=== PATIENT | female | born 1940 | race Caucasian/White ===

== ENCOUNTER 2017-07-27 21:05 | Inpatient (IN) | payer MEDICARE, OTHER ==
[2017-07-27 21:41] LABS: ADD MAN DIFF? NO
[2017-07-27] MEDS: ONDANSETRON 4 MG INJ IV (21:47)
[2017-07-27] MEDS: SOD CHLORIDE 0.9% 1,000 ML IV (21:47)
[2017-07-27 21:48] LABS: BASOPHILS % 0.2 % (0.0-2.0); EOSINOPHILS # 0.1 10^3/ul (0.0-0.5); EOSINOPHILS % 0.9 % (0.0-7.0); HEMATOCRIT 38.7 % (37.0-47.0); HEMOGLOBIN 12.8 g/dl (12.0-16.0); LYMPHOCYTES # 1.8 10^3/ul (0.8-2.9); LYMPHOCYTES % 20.7 % (15.0-51.0); MEAN CORPUSCULAR HEMOGLOBIN 31.8 pg (29.0-33.0); MEAN CORPUSCULAR HGB CONC 33.1 g/dl (32.0-37.0); MEAN PLATELET VOLUME 11.6 fl (7.4-10.4); MONOCYTE # 0.7 10^3/ul (0.3-0.9); MONOCYTES % 8.5 % (0.0-11.0); NEUTROPHILS % 69.5 % (39.0-77.0); PLATELET COUNT 180 10^3/UL (140-415); RED BLOOD COUNT 4.03 10^6/ul (4.20-5.40); RED CELL DISTRIBUTION WIDTH 13.9 % (11.5-14.5)
[2017-07-27 21:48] LABS: WHITE BLOOD COUNT 8.6 10^3/ul (4.8-10.8)
[2017-07-27 22:10] LABS: INR 1.06; PROTIME 13.9 Sec (11.9-14.9); PT RATIO 1.1
[2017-07-27 22:11] LABS: PARTIAL THROMBOPLASTIN TIME 29.3 Sec (25.0-35.0)
[2017-07-27 22:12] LABS: LACTIC ACID 1.6 mmol/L (0.5-2.0)
[2017-07-27 22:19] LABS: ADD UMIC NO; UR ASCORBIC ACID NEGATIVE (NEGATIVE); UR BILIRUBIN (Dip) NEGATIVE (NEGATIVE); UR BLOOD (Dip) NEGATIVE (NEGATIVE); UR CLARITY CLEAR (CLEAR); UR COLOR YELLOW (YELLOW); UR GLUCOSE (Dip) NEGATIVE (NEGATIVE); UR KETONES (Dip) NEGATIVE (NEGATIVE); UR LEUKOCYTE ESTERASE (Dip) NEGATIVE Leu/ul (NEGATIVE); UR NITRITE (Dip) NEGATIVE (NEGATIVE); UR SPECIFIC GRAVITY (Dip) 1.017 (1.003-1.030); UR TOTAL PROTEIN (Dip) NEGATIVE (NEGATIVE); UR UROBILINOGEN (Dip) NEGATIVE (NEGATIVE)
[2017-07-27 22:26] LABS: ALANINE AMINOTRANSFERASE 11 IU/L (13-69); ALBUMIN 4.8 g/dl (3.3-4.9); ALBUMIN/GLOBULIN RATIO 1.23; ALKALINE PHOSPHATASE 71 IU/L (42-121); ANION GAP 19 (8-16); ASPARTATE AMINO TRANSFERASE 34 IU/L (15-46); BILIRUBIN,INDIRECT 0.6 mg/dl (0-1.1); BILIRUBIN,TOTAL 0.6 mg/dl (0.2-1.3); BLOOD UREA NITROGEN 15 mg/dl (7-20); CALCIUM 9.5 mg/dl (8.4-10.2); CARBON DIOXIDE 25 mmol/L (21-31); CHLORIDE 102 mmol/L (97-110); CREATININE 0.46 mg/dl (0.44-1.00); GLUCOSE 103 mg/dl (70-220); POTASSIUM 5.2 mmol/L (3.5-5.1); SODIUM 141 mmol/L (135-144); TOTAL PROTEIN 8.7 g/dl (6.1-8.1)
[2017-07-27 22:30] LABS: ACETAMINOPHEN < 10.0 ug/ml (10.0-30.0); SALICYLATE < 1.0 mg/dl (5.0-30.0)
[2017-07-27 22:37] LABS: B-TYPE NATRIURETIC PEPTIDE 398 PG/ML (0-450); TROPONIN-I 0.013 ng/ml (0.00-0.12)
[2017-07-27 22:47] LABS: AMPHETAMINE/METHAMPHETAMINE NEGATIVE (NEGATIVE); BARBITURATES NEGATIVE (NEGATIVE); BENZODIAZEPINES NEGATIVE (NEGATIVE)
[2017-07-27 22:48] LABS: CANNABINOIDS NEGATIVE (NEGATIVE); COCAINE NEGATIVE (NEGATIVE); ETHANOL < 10.0 mg/dl; OPIATES POSITIVE (NEGATIVE)
[2017-07-27] MEDS: hydrALAzine 20 MG INJ IV (22:57)
[2017-07-27 23:33] LABS: FREE THYROXINE INDEX (Calc) 2.88 ug/ml (0.65-3.89)
[2017-07-27 23:39] LABS: T3 UPTAKE 33.9 % (23.5-40.5); T4 (THYROXINE) 8.5 ug/dl (5.5-11.0)
[2017-07-28] MEDS: morphine 2 MG INJ IV (00:13)
[2017-07-28] MEDS: SOD CHLORIDE 0.9% 1,000 ML IV ×3 (00:19→18:50)
[2017-07-28] MEDS: ONDANSETRON 4 MG INJ IV ×2 (00:22→21:57)
[2017-07-28] MEDS: METOCLOPRAMIDE 10 MG INJ IV (00:22)
[2017-07-28] MEDS: SALMETEROL/FLUTICASONE 250/50 INHA INH ×3 (00:30→21:57)
[2017-07-28] MEDS ORDERED: ACETAMINOPHEN 650MG/20.3ML CUP PO (00:30)
[2017-07-28] MEDS ORDERED: niCARdipine 25 MG in SOD CHLORIDE 0.9% 240 ML IV (00:45)
[2017-07-28] MEDS: PANTOPRAZOLE 40 MG INJ IV (05:57)
[2017-07-28 06:06] LABS: ADD MAN DIFF? NO
[2017-07-28 06:27] LABS: BASOPHILS % 0.1 % (0.0-2.0); EOSINOPHILS % 0.2 % (0.0-7.0); HEMATOCRIT 35.5 % (37.0-47.0); HEMOGLOBIN 11.8 g/dl (12.0-16.0); LYMPHOCYTES # 1.7 10^3/ul (0.8-2.9); LYMPHOCYTES % 18.2 % (15.0-51.0); MEAN CORPUSCULAR HGB CONC 33.2 g/dl (32.0-37.0); MEAN CORPUSCULAR VOLUME 96.2 fl (82.0-101.0); MEAN PLATELET VOLUME 11.6 fl (7.4-10.4); MONOCYTE # 0.7 10^3/ul (0.3-0.9); MONOCYTES % 7.3 % (0.0-11.0); NEUTROPHIL # 6.9 10^3/ul (1.6-7.5); NEUTROPHILS % 73.9 % (39.0-77.0); PLATELET COUNT 176 10^3/UL (140-415); RED BLOOD COUNT 3.69 10^6/ul (4.20-5.40)
[2017-07-28 06:27] LABS: WHITE BLOOD COUNT 9.4 10^3/ul (4.8-10.8)
[2017-07-28 07:07] LABS: ANION GAP 14 (8-16); BLOOD UREA NITROGEN 12 mg/dl (7-20); CALCIUM 8.9 mg/dl (8.4-10.2); CARBON DIOXIDE 29 mmol/L (21-31); CHLORIDE 101 mmol/L (97-110); CREATININE 0.43 mg/dl (0.44-1.00); GLUCOSE 110 mg/dl (70-220); MAGNESIUM 1.7 mg/dl (1.7-2.5); PHOSPHORUS 3.4 mg/dl (2.5-4.9); POTASSIUM 3.6 mmol/L (3.5-5.1); SODIUM 140 mmol/L (135-144)
[2017-07-28] MEDS: DOCUSATE SODIUM 100 MG CAP PO ×2 (09:48→20:49)
[2017-07-28] MEDS: LORAZEPAM 2 MG INJ IV (21:10)
[2017-07-28] MEDS ORDERED: DIPHENHYDRAMINE 50 MG INJ (22:34)
[2017-07-29] MEDS: LORAZEPAM 2 MG INJ IV (00:57)
[2017-07-29] MEDS: PANTOPRAZOLE 40 MG INJ IV (05:47)
[2017-07-29] MEDS: DOCUSATE SODIUM 100 MG CAP PO ×2 (09:00→22:05)
[2017-07-29] MEDS: SALMETEROL/FLUTICASONE 250/50 INHA INH ×2 (09:00→22:05)
[2017-07-29] MEDS ORDERED: LORAZEPAM 2 MG INJ IV (09:30)
[2017-07-29] MEDS ORDERED: INFLUENZA VIRUS VACCINE 0.5 ML SYG IM* (12:30)
[2017-07-29] MEDS: AMLODIPINE 5 MG TAB PO (16:55)
[2017-07-30] MEDS: METOPROLOL 25 MG TAB PO (01:50)
[2017-07-30] MEDS: PANTOPRAZOLE 40 MG INJ IV (06:18)
[2017-07-30] MEDS: SOD CHLORIDE 0.9% 100 ML (09:36)
[2017-07-30] MEDS: IOHEXOL 300MG/ML 150 ML BTL (09:36)
[2017-07-30] MEDS: SALMETEROL/FLUTICASONE 250/50 INHA INH (09:53)
[2017-07-30] MEDS: DOCUSATE SODIUM 100 MG CAP PO ×2 (09:53→20:33)
[2017-07-30] MEDS: AMLODIPINE 5 MG TAB PO (09:54)
[2017-07-31] MEDS: SALMETEROL/FLUTICASONE 250/50 INHA INH ×3 (03:08→19:53)
[2017-07-31] MEDS: PANTOPRAZOLE 40 MG INJ IV (05:29)
[2017-07-31] MEDS: DOCUSATE SODIUM 100 MG CAP PO ×2 (09:04→19:53)
[2017-07-31] MEDS: AMLODIPINE 5 MG TAB PO (09:05)
[2017-07-31] MEDS: ACETAMINOPHEN 325 MG TAB PO ×2 (11:46→19:53)
[2017-07-31] MEDS: ATORVASTATIN 20 MG TAB PO (19:53)
[2017-08-01] MEDS: PANTOPRAZOLE 40 MG INJ IV (05:33)
[2017-08-01] MEDS: SALMETEROL/FLUTICASONE 250/50 INHA INH ×2 (09:54→21:51)
[2017-08-01] MEDS: DOCUSATE SODIUM 100 MG CAP PO ×2 (09:54→21:51)
[2017-08-01] MEDS: AMLODIPINE 5 MG TAB PO (09:54)
[2017-08-01] MEDS: LORAZEPAM 2 MG INJ IV (20:15)
[2017-08-01] MEDS: ATORVASTATIN 20 MG TAB PO (21:51)
[2017-08-02] MEDS: PANTOPRAZOLE 40 MG INJ IV (05:17)
[2017-08-02] MEDS: DOCUSATE SODIUM 100 MG CAP PO ×2 (09:13→21:12)
[2017-08-02] MEDS: SALMETEROL/FLUTICASONE 250/50 INHA INH ×2 (09:13→21:12)
[2017-08-02] MEDS: AMLODIPINE 5 MG TAB PO (09:13)
[2017-08-02] MEDS: ATORVASTATIN 20 MG TAB PO (21:12)
[2017-08-02] MEDS ORDERED: MAGNESIUM HYDROXIDE 30ML CUP PO (21:30)
[2017-08-02] MEDS: MAGNESIUM HYDROXIDE 30ML CUP PO (21:45)
[2017-08-03] MEDS: ACETAMINOPHEN 325 MG TAB PO (04:28)
[2017-08-03] MEDS: LORAZEPAM 2 MG INJ IV (04:28)
[2017-08-03] MEDS: PANTOPRAZOLE 40 MG INJ IV (05:12)
[2017-08-03 06:29] LABS: ADD MAN DIFF? NO
[2017-08-03 06:43] LABS: BASOPHILS % 0.3 % (0.0-2.0); EOSINOPHILS # 0.1 10^3/ul (0.0-0.5); HEMOGLOBIN 13.1 g/dl (12.0-16.0); LYMPHOCYTES # 1.9 10^3/ul (0.8-2.9); LYMPHOCYTES % 15.8 % (15.0-51.0); MEAN CORPUSCULAR HEMOGLOBIN 32.7 pg (29.0-33.0); MEAN CORPUSCULAR HGB CONC 34.5 g/dl (32.0-37.0); MEAN CORPUSCULAR VOLUME 94.8 fl (82.0-101.0); MEAN PLATELET VOLUME 11.2 fl (7.4-10.4); MONOCYTE # 1.4 10^3/ul (0.3-0.9); MONOCYTES % 11.6 % (0.0-11.0); NEUTROPHIL # 8.3 10^3/ul (1.6-7.5); PLATELET COUNT 237 10^3/UL (140-415); RED BLOOD COUNT 4.01 10^6/ul (4.20-5.40); RED CELL DISTRIBUTION WIDTH 13.6 % (11.5-14.5)
[2017-08-03 06:43] LABS: WHITE BLOOD COUNT 11.7 10^3/ul (4.8-10.8)
[2017-08-03 06:48] LABS: INR 1.11; PROTIME 14.5 Sec (11.9-14.9); PT RATIO 1.1
[2017-08-03 06:53] LABS: ANION GAP 16 (8-16); BLOOD UREA NITROGEN 11 mg/dl (7-20); CALCIUM 8.9 mg/dl (8.4-10.2); CARBON DIOXIDE 29 mmol/L (21-31); CHLORIDE 99 mmol/L (97-110); CREATININE 0.45 mg/dl (0.44-1.00); GLUCOSE 115 mg/dl (70-220); MAGNESIUM 2.1 mg/dl (1.7-2.5); POTASSIUM 4.1 mmol/L (3.5-5.1); SODIUM 140 mmol/L (135-144)
[2017-08-03] MEDS: DOCUSATE SODIUM 100 MG CAP PO ×3 (09:00→20:42)
[2017-08-03] MEDS: SALMETEROL/FLUTICASONE 250/50 INHA INH ×2 (09:13→20:42)
[2017-08-03] MEDS: METOPROLOL 25 MG TAB PO ×2 (09:15→20:43)
[2017-08-03] MEDS: CEFTRIAXONE 1 GM/50 ML (PMX) 50 ML IVPB (16:54)
[2017-08-03] MEDS: ATORVASTATIN 20 MG TAB PO (20:42)
[2017-08-04 00:30] LABS: ADD UMIC NO; UR ASCORBIC ACID NEGATIVE (NEGATIVE); UR BILIRUBIN (Dip) NEGATIVE (NEGATIVE); UR BLOOD (Dip) NEGATIVE (NEGATIVE); UR CLARITY CLEAR (CLEAR); UR COLOR YELLOW (YELLOW); UR GLUCOSE (Dip) NEGATIVE (NEGATIVE); UR KETONES (Dip) NEGATIVE (NEGATIVE); UR LEUKOCYTE ESTERASE (Dip) NEGATIVE Leu/ul (NEGATIVE); UR NITRITE (Dip) NEGATIVE (NEGATIVE); UR SPECIFIC GRAVITY (Dip) 1.013 (1.003-1.030); UR TOTAL PROTEIN (Dip) NEGATIVE (NEGATIVE); UR UROBILINOGEN (Dip) NEGATIVE (NEGATIVE)
[2017-08-04] MEDS: PANTOPRAZOLE 40 MG INJ IV (05:12)
[2017-08-04] MEDS: METOPROLOL 25 MG TAB PO ×2 (08:42→20:41)
[2017-08-04] MEDS: DOCUSATE SODIUM 100 MG CAP PO ×2 (08:42→20:41)
[2017-08-04] MEDS: SALMETEROL/FLUTICASONE 250/50 INHA INH ×2 (08:42→20:41)
[2017-08-04 08:54] LABS: ADD MAN DIFF? NO
[2017-08-04 08:59] LABS: BASOPHILS % 0.3 % (0.0-2.0); EOSINOPHILS # 0.1 10^3/ul (0.0-0.5); EOSINOPHILS % 1.2 % (0.0-7.0); HEMATOCRIT 36.7 % (37.0-47.0); HEMOGLOBIN 12.5 g/dl (12.0-16.0); LYMPHOCYTES # 1.6 10^3/ul (0.8-2.9); LYMPHOCYTES % 16.6 % (15.0-51.0); MEAN CORPUSCULAR HEMOGLOBIN 32.5 pg (29.0-33.0); MEAN CORPUSCULAR HGB CONC 34.1 g/dl (32.0-37.0); MEAN CORPUSCULAR VOLUME 95.3 fl (82.0-101.0); MEAN PLATELET VOLUME 11.4 fl (7.4-10.4); MONOCYTE # 1.2 10^3/ul (0.3-0.9); MONOCYTES % 12.6 % (0.0-11.0); NEUTROPHIL # 6.6 10^3/ul (1.6-7.5); PLATELET COUNT 269 10^3/UL (140-415); RED BLOOD COUNT 3.85 10^6/ul (4.20-5.40); RED CELL DISTRIBUTION WIDTH 13.5 % (11.5-14.5)
[2017-08-04 08:59] LABS: WHITE BLOOD COUNT 9.6 10^3/ul (4.8-10.8)
[2017-08-04 09:38] LABS: ANION GAP 15 (8-16); BLOOD UREA NITROGEN 10 mg/dl (7-20); CALCIUM 8.7 mg/dl (8.4-10.2); CARBON DIOXIDE 27 mmol/L (21-31); CHLORIDE 99 mmol/L (97-110); CREATININE 0.46 mg/dl (0.44-1.00); GLUCOSE 110 mg/dl (70-220); POTASSIUM 4.2 mmol/L (3.5-5.1); SODIUM 137 mmol/L (135-144)
[2017-08-04] MEDS: CEFTRIAXONE 1 GM/50 ML (PMX) 50 ML IVPB (15:21)
[2017-08-04] MEDS: ATORVASTATIN 20 MG TAB PO (20:41)
== END 2017-08-04 22:30 | DRG 64 ==
LOC: ICU 23:58 → E/R 21:05 → PP2 07-28 18:30
DX: I61.1 Nontraumatic intracerebral hemorrhage in hemisphere, cortical (principal); G93.49 Other encephalopathy; J69.0 Pneumonitis due to inhalation of food and vomit; R47.01 Aphasia; I25.10 Atherosclerotic heart disease of native coronary artery without angina pectoris; Z82.49 Family history of ischemic heart disease and other diseases of the circulatory system; F41.9 Anxiety disorder, unspecified; I60.9 Nontraumatic subarachnoid hemorrhage, unspecified; M43.26 Fusion of spine, lumbar region; I10 Essential (primary) hypertension; E87.5 Hyperkalemia; E78.5 Hyperlipidemia, unspecified; J45.909 Unspecified asthma, uncomplicated; J44.9 Chronic obstructive pulmonary disease, unspecified; M40.209 Unspecified kyphosis, site unspecified; R00.0 Tachycardia, unspecified; Z95.1 Presence of aortocoronary bypass graft
CPT/HCPCS: 36415; 70450; 70544; 70548; 70553; 71045; 71260; 74177; 80048; 80053; 80306; 80307; 81003; 83605; 83735; 83880; 84100; 84436; 84443; 84479; 84484; 85025; 85610; 85730; 87040; 87081; 92610; 93005; 93306; 93970; 96374; 96375; 96376; 97110; 97116; 97163; 97530; 99291-25

== ENCOUNTER 2017-08-04 22:52 | Inpatient (IN) | payer MEDICARE, OTHER ==
[2017-08-05] MEDS ORDERED: ONDANSETRON 4 MG INJ IV (00:30)
[2017-08-05] MEDS ORDERED: ACETAMINOPHEN 650MG/20.3ML CUP PO (00:30)
[2017-08-05] MEDS ORDERED: MAGNESIUM HYDROXIDE 30ML CUP PO (00:30)
[2017-08-05] MEDS: PANTOPRAZOLE 40 MG INJ IV (06:39)
[2017-08-05 07:25] LABS: ADD UMIC NO; UR ASCORBIC ACID NEGATIVE (NEGATIVE); UR BACTERIA FEW /HPF (NONE SEEN); UR BILIRUBIN (Dip) NEGATIVE (NEGATIVE); UR BLOOD (Dip) NEGATIVE (NEGATIVE); UR BUDDING YEAST FEW /HPF (NONE SEEN); UR CLARITY SLIGHTLY CLOUDY (CLEAR); UR COLOR YELLOW (YELLOW); UR GLUCOSE (Dip) NEGATIVE (NEGATIVE); UR KETONES (Dip) NEGATIVE (NEGATIVE); UR LEUKOCYTE ESTERASE (Dip) NEGATIVE Leu/ul (NEGATIVE); UR NITRITE (Dip) NEGATIVE (NEGATIVE); UR RBC 4 /HPF (0-5); UR SPECIFIC GRAVITY (Dip) 1.012 (1.003-1.030); UR SQUAMOUS EPITHELIAL CELL FEW /HPF (FEW); UR TOTAL PROTEIN (Dip) NEGATIVE (NEGATIVE); UR UROBILINOGEN (Dip) NEGATIVE (NEGATIVE); UR WBC 3 /HPF (0-5)
[2017-08-05 07:26] LABS: ADD MAN DIFF? NO
[2017-08-05 07:28] LABS: WHITE BLOOD COUNT 9.1 10^3/ul (4.8-10.8)
[2017-08-05 07:28] LABS: BASOPHILS % 0.3 % (0.0-2.0); EOSINOPHILS # 0.1 10^3/ul (0.0-0.5); EOSINOPHILS % 1.2 % (0.0-7.0); HEMATOCRIT 36.9 % (37.0-47.0); HEMOGLOBIN 12.5 g/dl (12.0-16.0); LYMPHOCYTES # 1.9 10^3/ul (0.8-2.9); LYMPHOCYTES % 20.7 % (15.0-51.0); MEAN CORPUSCULAR HEMOGLOBIN 32.2 pg (29.0-33.0); MEAN CORPUSCULAR HGB CONC 33.9 g/dl (32.0-37.0); MEAN CORPUSCULAR VOLUME 95.1 fl (82.0-101.0); MONOCYTE # 1.2 10^3/ul (0.3-0.9); MONOCYTES % 12.7 % (0.0-11.0); NEUTROPHIL # 5.9 10^3/ul (1.6-7.5); NEUTROPHILS % 64.7 % (39.0-77.0); PLATELET COUNT 278 10^3/UL (140-415); RED BLOOD COUNT 3.88 10^6/ul (4.20-5.40); RED CELL DISTRIBUTION WIDTH 13.5 % (11.5-14.5)
[2017-08-05 07:48] LABS: ALANINE AMINOTRANSFERASE 29 IU/L (13-69); ALBUMIN 3.7 g/dl (3.3-4.9); ALBUMIN/GLOBULIN RATIO 0.92; ALKALINE PHOSPHATASE 82 IU/L (42-121); ANION GAP 15 (8-16); ASPARTATE AMINO TRANSFERASE 28 IU/L (15-46); BILIRUBIN,INDIRECT 0.3 mg/dl (0-1.1); BILIRUBIN,TOTAL 0.3 mg/dl (0.2-1.3); BLOOD UREA NITROGEN 12 mg/dl (7-20); CALCIUM 9.1 mg/dl (8.4-10.2); CARBON DIOXIDE 26 mmol/L (21-31); CHLORIDE 102 mmol/L (97-110); CREATININE 0.44 mg/dl (0.44-1.00); GLUCOSE 106 mg/dl (70-220); POTASSIUM 4.1 mmol/L (3.5-5.1); SODIUM 139 mmol/L (135-144); TOTAL PROTEIN 7.7 g/dl (6.1-8.1)
[2017-08-05] MEDS ORDERED: BISACODYL 10 MG SUPP PR (08:00)
[2017-08-05] MEDS ORDERED: LACTULOSE 30ML CUP PO (08:00)
[2017-08-05] MEDS: SALMETEROL/FLUTICASONE 250/50 INHA INH ×2 (08:38→21:22)
[2017-08-05] MEDS: CEFTRIAXONE 1 GM/50 ML (PMX) 50 ML IVPB (08:38)
[2017-08-05] MEDS: DOCUSATE SODIUM 100 MG CAP PO ×2 (08:39→21:00)
[2017-08-05] MEDS: METOPROLOL 25 MG TAB PO ×2 (08:39→21:22)
[2017-08-05] MEDS: ACETAMINOPHEN 325 MG TAB PO (08:59)
[2017-08-05] MEDS: SENNA TAB PO (21:00)
[2017-08-05] MEDS: ATORVASTATIN 20 MG TAB PO (21:22)
[2017-08-06] MEDS: PANTOPRAZOLE 40 MG INJ IV (06:22)
[2017-08-06] MEDS: SALMETEROL/FLUTICASONE 250/50 INHA INH ×2 (09:55→21:27)
[2017-08-06] MEDS: METOPROLOL 25 MG TAB PO ×2 (09:56→21:17)
[2017-08-06] MEDS: CEFTRIAXONE 1 GM/50 ML (PMX) 50 ML IVPB (09:56)
[2017-08-06] MEDS: DOCUSATE SODIUM 100 MG CAP PO ×2 (09:56→21:00)
[2017-08-06] MEDS: ACETAMINOPHEN 325 MG TAB PO ×2 (09:57→21:15)
[2017-08-06] MEDS: SENNA TAB PO (21:00)
[2017-08-06] MEDS: ATORVASTATIN 20 MG TAB PO (21:17)
[2017-08-07] MEDS: ACETAMINOPHEN 325 MG TAB PO ×2 (01:18→09:03)
[2017-08-07] MEDS: PANTOPRAZOLE 40 MG INJ IV (06:50)
[2017-08-07] MEDS: CEFTRIAXONE 1 GM/50 ML (PMX) 50 ML IVPB (09:03)
[2017-08-07] MEDS: SALMETEROL/FLUTICASONE 250/50 INHA INH ×2 (09:03→21:35)
[2017-08-07] MEDS: METOPROLOL 25 MG TAB PO ×2 (09:04→21:00)
[2017-08-07] MEDS: DOCUSATE SODIUM 100 MG CAP PO ×2 (09:04→21:35)
[2017-08-07] MEDS: INFLUENZA VIRUS VACCINE 0.5 ML (DISPENSING) IM* (09:22)
[2017-08-07] MEDS: traMADol 50 MG TAB PO ×2 (09:43→21:38)
[2017-08-07] MEDS: GUAIFENESIN/DM 5ML CUP PO (13:41)
[2017-08-07] MEDS: SENNA TAB PO (21:00)
[2017-08-07] MEDS: ATORVASTATIN 20 MG TAB PO (21:35)
[2017-08-08] MEDS: PANTOPRAZOLE 40 MG INJ IV (06:00)
[2017-08-08] MEDS: SALMETEROL/FLUTICASONE 250/50 INHA INH ×2 (08:32→21:12)
[2017-08-08] MEDS: DOCUSATE SODIUM 100 MG CAP PO ×2 (08:32→21:11)
[2017-08-08] MEDS: METOPROLOL 25 MG TAB PO ×2 (08:34→21:12)
[2017-08-08] MEDS: CEFTRIAXONE 1 GM/50 ML (PMX) 50 ML IVPB (08:36)
[2017-08-08] MEDS: PANTOPRAZOLE (EC) 40 MG TAB PO (12:56)
[2017-08-08] MEDS: ATORVASTATIN 20 MG TAB PO (21:11)
[2017-08-08] MEDS: SENNA TAB PO (21:11)
[2017-08-09] MEDS: traMADol 50 MG TAB PO ×2 (05:42→20:32)
[2017-08-09] MEDS: PANTOPRAZOLE (EC) 40 MG TAB PO (05:42)
[2017-08-09] MEDS: DOCUSATE SODIUM 100 MG CAP PO ×2 (09:06→20:28)
[2017-08-09] MEDS: METOPROLOL 25 MG TAB PO (09:08)
[2017-08-09] MEDS: SALMETEROL/FLUTICASONE 250/50 INHA INH ×2 (09:08→20:12)
[2017-08-09] MEDS: ACETAMINOPHEN 325 MG TAB PO (09:08)
[2017-08-09] MEDS: CEFTRIAXONE 1 GM/50 ML (PMX) 50 ML IVPB (09:44)
[2017-08-09] MEDS: ATORVASTATIN 20 MG TAB PO (20:16)
[2017-08-09] MEDS: BENAZEPRIL 10 MG TAB PO (20:16)
[2017-08-09] MEDS: SENNA TAB PO (20:27)
[2017-08-10] MEDS: PANTOPRAZOLE (EC) 40 MG TAB PO (06:14)
[2017-08-10] MEDS: BENAZEPRIL 10 MG TAB PO ×2 (08:57→20:04)
[2017-08-10] MEDS: SALMETEROL/FLUTICASONE 250/50 INHA INH ×2 (08:57→20:05)
[2017-08-10] MEDS: DOCUSATE SODIUM 100 MG CAP PO ×2 (08:57→20:06)
[2017-08-10] MEDS: traMADol 50 MG TAB PO (09:00)
[2017-08-10] MEDS: ATORVASTATIN 20 MG TAB PO (20:02)
[2017-08-10] MEDS: SENNA TAB PO (20:10)
[2017-08-11] MEDS: ACETAMINOPHEN 325 MG TAB PO ×2 (01:37→21:30)
[2017-08-11] MEDS: PANTOPRAZOLE (EC) 40 MG TAB PO (06:04)
[2017-08-11] MEDS: DOCUSATE SODIUM 100 MG CAP PO ×2 (08:46→21:00)
[2017-08-11] MEDS: BENAZEPRIL 10 MG TAB PO ×2 (08:46→21:30)
[2017-08-11] MEDS: SALMETEROL/FLUTICASONE 250/50 INHA INH ×2 (08:46→21:30)
[2017-08-11] MEDS: SENNA TAB PO (21:00)
[2017-08-11] MEDS: ATORVASTATIN 20 MG TAB PO (21:30)
[2017-08-12] MEDS: PANTOPRAZOLE (EC) 40 MG TAB PO (06:14)
[2017-08-12] MEDS: ACETAMINOPHEN 325 MG TAB PO ×2 (06:54→21:05)
[2017-08-12] MEDS: SALMETEROL/FLUTICASONE 250/50 INHA INH ×2 (08:16→21:04)
[2017-08-12] MEDS: BENAZEPRIL 10 MG TAB PO ×2 (08:17→21:04)
[2017-08-12] MEDS: DOCUSATE SODIUM 100 MG CAP PO ×2 (08:17→21:00)
[2017-08-12] MEDS: traMADol 50 MG TAB PO ×2 (09:51→17:49)
[2017-08-12] MEDS: SENNA TAB PO (21:00)
[2017-08-12] MEDS: ATORVASTATIN 20 MG TAB PO (21:04)
[2017-08-12] MEDS: ALPRAZOLAM 0.25 MG TAB PO (21:05)
[2017-08-12] MEDS: GUAIFENESIN/DM 5ML CUP PO (21:37)
[2017-08-13] MEDS: PANTOPRAZOLE (EC) 40 MG TAB PO (06:30)
[2017-08-13] MEDS: SALMETEROL/FLUTICASONE 250/50 INHA INH ×2 (09:00→20:31)
[2017-08-13] MEDS: BENAZEPRIL 10 MG TAB PO ×2 (09:00→20:30)
[2017-08-13] MEDS: DOCUSATE SODIUM 100 MG CAP PO ×2 (09:00→20:29)
[2017-08-13] MEDS: traMADol 50 MG TAB PO (13:23)
[2017-08-13] MEDS: SENNA TAB PO (20:29)
[2017-08-13] MEDS: ACETAMINOPHEN 325 MG TAB PO (20:29)
[2017-08-13] MEDS: ALPRAZOLAM 0.25 MG TAB PO (20:30)
[2017-08-13] MEDS: ATORVASTATIN 20 MG TAB PO (20:30)
[2017-08-14] MEDS: PANTOPRAZOLE (EC) 40 MG TAB PO (06:55)
[2017-08-14] MEDS: SALMETEROL/FLUTICASONE 250/50 INHA INH ×2 (09:06→21:09)
[2017-08-14] MEDS: DOCUSATE SODIUM 100 MG CAP PO ×2 (09:06→21:08)
[2017-08-14] MEDS: BENAZEPRIL 10 MG TAB PO ×2 (09:07→21:09)
[2017-08-14] MEDS: SENNA TAB PO (21:08)
[2017-08-14] MEDS: ALPRAZOLAM 0.25 MG TAB PO (21:08)
[2017-08-14] MEDS: traMADol 50 MG TAB PO (21:08)
[2017-08-14] MEDS: ATORVASTATIN 20 MG TAB PO (21:08)
[2017-08-15] MEDS: traMADol 50 MG TAB PO ×3 (06:34→22:53)
[2017-08-15] MEDS: PANTOPRAZOLE (EC) 40 MG TAB PO (06:34)
[2017-08-15] MEDS: DOCUSATE SODIUM 100 MG CAP PO ×3 (09:00→21:00)
[2017-08-15] MEDS: BENAZEPRIL 10 MG TAB PO ×3 (09:00→20:31)
[2017-08-15] MEDS: SALMETEROL/FLUTICASONE 250/50 INHA INH ×2 (09:21→20:34)
[2017-08-15] MEDS: ATORVASTATIN 20 MG TAB PO (20:31)
[2017-08-15] MEDS: ALPRAZOLAM 0.25 MG TAB PO (20:31)
[2017-08-15] MEDS: GUAIFENESIN/DM 5ML CUP PO (20:42)
[2017-08-15] MEDS: SENNA TAB PO (21:00)
[2017-08-16] MEDS: PANTOPRAZOLE (EC) 40 MG TAB PO (05:49)
[2017-08-16] MEDS: traMADol 50 MG TAB PO ×3 (08:23→22:52)
[2017-08-16] MEDS: DOCUSATE SODIUM 100 MG CAP PO ×2 (09:13→20:09)
[2017-08-16] MEDS: SALMETEROL/FLUTICASONE 250/50 INHA INH ×2 (09:13→22:56)
[2017-08-16] MEDS: BENAZEPRIL 10 MG TAB PO ×2 (09:13→20:09)
[2017-08-16] MEDS: SENNA TAB PO (20:09)
[2017-08-16] MEDS: ATORVASTATIN 20 MG TAB PO (20:09)
[2017-08-16] MEDS: HYDROCODONE/APAP (5/325) TAB PO (20:10)
[2017-08-17] MEDS ORDERED: PROMETHAZINE 25 MG TAB PO (04:30)
[2017-08-17] MEDS: PANTOPRAZOLE (EC) 40 MG TAB PO (06:44)
[2017-08-17] MEDS: HYDROCODONE/APAP (5/325) TAB PO ×2 (06:44→20:21)
[2017-08-17] MEDS: DOCUSATE SODIUM 100 MG CAP PO ×2 (09:00→20:21)
[2017-08-17] MEDS: BENAZEPRIL 10 MG TAB PO ×2 (09:31→20:21)
[2017-08-17] MEDS: PROMETHAZINE (1.25 MG/ML) 5 ML CUP PO ×2 (09:31→20:22)
[2017-08-17] MEDS: SALMETEROL/FLUTICASONE 250/50 INHA INH ×2 (09:31→20:21)
[2017-08-17] MEDS: traMADol 50 MG TAB PO ×2 (16:21→22:55)
[2017-08-17] MEDS: ATORVASTATIN 20 MG TAB PO (20:21)
[2017-08-17] MEDS: SENNA TAB PO (20:21)
[2017-08-17] MEDS: ALPRAZOLAM 0.25 MG TAB PO (20:21)
[2017-08-17] MEDS: ACETAMINOPHEN 325 MG TAB PO (22:55)
[2017-08-18] MEDS: traMADol 50 MG TAB PO ×2 (06:46→10:58)
[2017-08-18] MEDS: PANTOPRAZOLE (EC) 40 MG TAB PO (06:47)
[2017-08-18] MEDS: PROMETHAZINE (1.25 MG/ML) 5 ML CUP PO (09:00)
[2017-08-18] MEDS: BENAZEPRIL 10 MG TAB PO ×2 (09:00→21:00)
[2017-08-18] MEDS: DOCUSATE SODIUM 100 MG CAP PO ×2 (09:00→21:13)
[2017-08-18] MEDS: SALMETEROL/FLUTICASONE 250/50 INHA INH ×2 (09:00→21:00)
[2017-08-18] MEDS: HYDROCODONE/APAP (5/325) TAB PO ×2 (09:01→21:13)
[2017-08-18] MEDS: SENNA TAB PO (21:13)
[2017-08-18] MEDS: ATORVASTATIN 20 MG TAB PO (21:13)
[2017-08-19] MEDS: traMADol 50 MG TAB PO (06:21)
[2017-08-19] MEDS: PANTOPRAZOLE (EC) 40 MG TAB PO (06:21)
[2017-08-19] MEDS: BENAZEPRIL 10 MG TAB PO ×2 (09:00→21:56)
[2017-08-19] MEDS: SALMETEROL/FLUTICASONE 250/50 INHA INH ×3 (09:00→21:54)
[2017-08-19] MEDS: DOCUSATE SODIUM 100 MG CAP PO ×2 (09:00→21:00)
[2017-08-19] MEDS: HYDROCODONE/APAP (5/325) TAB PO ×2 (11:42→21:56)
[2017-08-19] MEDS: ATORVASTATIN 20 MG TAB PO (21:00)
[2017-08-19] MEDS: SENNA TAB PO (21:00)
[2017-08-19] MEDS: PROMETHAZINE (1.25 MG/ML) 5 ML CUP PO (21:57)
[2017-08-20] MEDS: PANTOPRAZOLE (EC) 40 MG TAB PO (06:35)
[2017-08-20] MEDS: traMADol 50 MG TAB PO ×2 (09:03→14:25)
[2017-08-20] MEDS: DOCUSATE SODIUM 100 MG CAP PO ×2 (09:03→20:52)
[2017-08-20] MEDS: BENAZEPRIL 10 MG TAB PO ×2 (09:03→20:52)
[2017-08-20] MEDS: ATORVASTATIN 20 MG TAB PO (20:52)
[2017-08-20] MEDS: SENNA TAB PO (20:53)
[2017-08-21] MEDS: PANTOPRAZOLE (EC) 40 MG TAB PO (05:36)
[2017-08-21] MEDS: HYDROCODONE/APAP (5/325) TAB PO (05:36)
[2017-08-21] MEDS: BENAZEPRIL 10 MG TAB PO (08:27)
[2017-08-21] MEDS: DOCUSATE SODIUM 100 MG CAP PO (08:27)
== END 2017-08-21 12:00 | disposition hospice, home (50) | DRG 946 ==
LOC: VRC 22:52
PROC: F07Z5ZZ Bed Mobility Treatment (ICD-10-PCS; principal; 2017-08-04)
PROC: F07Z8ZZ Transfer Training Treatment (ICD-10-PCS; 2017-08-04)
PROC: F08Z2ZZ Grooming/Personal Hygiene Treatment (ICD-10-PCS; 2017-08-04)
PROC: F08Z1ZZ Dressing Techniques Treatment (ICD-10-PCS; 2017-08-04)
PROC: F08Z0ZZ Bathing/Showering Techniques Treatment (ICD-10-PCS; 2017-08-04)
DX: S06.5X9D Traumatic subdural hemorrhage with loss of consciousness of unspecified duration, subsequent encounter (principal); X58.XXXD Exposure to other specified factors, subsequent encounter; J44.9 Chronic obstructive pulmonary disease, unspecified; I10 Essential (primary) hypertension; F41.9 Anxiety disorder, unspecified; E78.5 Hyperlipidemia, unspecified; I25.10 Atherosclerotic heart disease of native coronary artery without angina pectoris; R60.0 Localized edema; R53.81 Other malaise; Z95.1 Presence of aortocoronary bypass graft; Z98.1 Arthrodesis status
CPT/HCPCS: 71045; 80053; 81001; 81003; 85025; 87081; 87086; 92507; 92523; 92526; 92610; 97110; 97112; 97116; 97163; 97167; 97530; 97535; 97542